=== PATIENT | female | born 1960 | race Caucasian/White ===

== ENCOUNTER 2019-01-30 07:08 | Observation (INO) | payer MEDICARE ==
[2019-01-27 10:28] VITALS: BMI 21.4
[2019-01-30 08:18] LABS: #Basophils 0.1 thou/uL (0.0-0.2); #Eosinphils 0.3 thou/uL (0.0-0.7); #Monocytes 0.5 thou/uL (0.11-0.59); %Basophils 1.1 % (0.0-1.0); %Eosinophils 4.6 % (0.0-10.0); %Lymphocytes 43.6 % (21.0-51.0); %Monocytes 6.9 % (0.0-10.0); %Neutrophils 43.8 % (42.0-75.0); Hemoglobin 14.5 g/dL (12.0-16.0); Mean Corpuscular HGB CONC 31.6 g/dL (32.0-36.0); Mean Corpuscular Volume 94.7 fL (78.0-98.0); Mean Platelet Volume 8.1 fL (7.4-10.4); Platelet Count 272 thou/uL (130-400); RBC Distribution Width 11.1 % (11.5-14.5); Red Blood Cell (RBC) Count 4.85 mill/uL (4.20-5.40); White Blood Cell (WBC) Count 6.8 thou/uL (4.8-10.8)
[2019-01-30] MEDS ORDERED: Sodium Chloride 0.9% 10 ML ONE (08:34)
[2019-01-30 08:36] LABS: Anion Gap 14 mmol/L (10-20); BUN (Urea Nitrogen) 12 mg/dL (9.8-20.1); Calc. Creatinine Clearance 65 mL/min (70-130); Calcium 9.9 mg/dL (7.8-10.44); Carbon Dioxide 28 mmol/L (22-29); Chloride 100 mmol/L (98-107); Estimated GFR-MDRD 71; Glucose 82 mg/dL (70-105); Potassium 3.9 mmol/L (3.5-5.1); Sodium 138 mmol/L (136-145)
[2019-01-30] MEDS ORDERED: Fentanyl 100 MCG/2 ML VIAL ONE ×2 (08:38→11:45)
[2019-01-30] MEDS ORDERED: HYDROmorphone 2 MG/ML VIAL ONE ×2 (08:38→10:16)
[2019-01-30] MEDS ORDERED: Midazolam HCl 2 mg/2 ml Vial ONE (08:56)
[2019-01-30] MEDS ORDERED: tiZANidine HCl 4 MG TAB ONE (11:06)
[2019-01-30] MEDS ORDERED: Non-Formulary Medication 1 EACH PO PRN (11:08)
[2019-01-30] MEDS ORDERED: Morphine 4 MG/ML VIAL SLOW IVP PRN (11:08)
[2019-01-30] MEDS ORDERED: Ondansetron HCl/PF 4 MG/2 ML Vial IVP PRN (11:08)
[2019-01-30] MEDS ORDERED: HYDROmorphone 2 MG/ML VIAL SLOW IVP PRN (11:08)
[2019-01-30] MEDS ORDERED: Promethazine HCl 25 MG/ML VIAL IM/IV PRN (11:08)
[2019-01-30] MEDS ORDERED: Morphine Sulfate 2 MG/ML SYRINGE SLOW IVP PRN (11:08)
[2019-01-30] MEDS ORDERED: Promethazine HCl 25 MG/ML VIAL IM PRN ×2 (11:10→18:27)
[2019-01-30] MEDS ORDERED: tiZANidine HCl 4 MG TAB PO PRN (11:10)
[2019-01-30] MEDS ORDERED: diphenhydrAMINE 25 MG CAP PO PRN ×2 (11:10→18:27)
[2019-01-30] MEDS ORDERED: Promethazine HCl 12.5 MG SUPP PR PRN (11:10)
[2019-01-30] MEDS ORDERED: traMADol HCl 50 MG TAB PO PRN ×2 (11:10)
[2019-01-30] MEDS ORDERED: Milk Of Magnesia 30 ML UDCUP PO PRN (11:10)
[2019-01-30] MEDS ORDERED: diphenhydrAMINE 50 MG/ML VIAL IVP PRN (11:10)
[2019-01-30] MEDS ORDERED: Mag-Al 1200 mg/1200 mg/30 ML UDCUP PO PRN (11:10)
[2019-01-30] MEDS ORDERED: HYDROcodone/Acetaminophen 10/325 mg Tablet PO PRN ×2 (11:10)
[2019-01-30] MEDS ORDERED: Promethazine 25 MG TAB PO PRN (11:10)
[2019-01-30] MEDS ORDERED: ALPRAZolam 0.5 MG TAB PO PRN (11:22)
[2019-01-30] MEDS ORDERED: Fioricet 325/50/40 mg Tablet PO PRN (11:23)
[2019-01-30] MEDS ORDERED: Morphine 2 MG/ML SYRINGE SLOW IVP PRN (11:45)
--- NOTE | 2019-01-30 14:04 | OP ---
DATE OF PROCEDURE: 01/30/2019 BRAND LEADER: Donald Jefferson PA-C PROCEDURE PERFORMED: Anterior cervical diskectomy C3-C4 and C5-C6. interbody arthrodesis, intervertebral biomechanical device, local morselized autograft, demineralized bone matrix, anterior titanium instrumentation C3-C4 and C5-C6. DESCRIPTION OF PROCEDURE: The patient was brought to the operating room and intubated. She was positioned supine in modest extension on a gel-filled donut. We performed a single incision in the right precervical area and dissected medial to the sternocleidomastoid muscle, identified the anterior cervical spine and confirmed our level by x-ray as expected. C4-C5 was auto fused and we identified C3-C4 and C5-C6. At both of these levels, we placed distraction and completely removed the intervertebral disk, decompressing the neural elements. The bony endplates were then decorticated for the purpose of arthrodesis and appropriate-sized intervertebral biomechanical PEEK device was brought into the field and filled with demineralized bone matrix local morselized autograft, and tapped in place securely at C3-C4 and C5-C6. Next, two separate one level anterior plate was brought into the field and secured to C3 and C4 and to C5 and C6 using two 14-mm screws at each level. The wound was then extensively irrigated and maximum hemostasis was secured and the wound was closed in anatomic layers over drain. Job ID: [id number]
[2019-01-30] MEDS ORDERED: Rocuronium Bromide 10 MG/ML (10ML VIAL) ONE (14:55)
[2019-01-30] MEDS ORDERED: Ondansetron PF 4 MG/2 ML Vial ONE (14:55)
[2019-01-30] MEDS ORDERED: PROPOFOL 200 MG/20 ML VIAL ONE (14:55)
[2019-01-30] MEDS ORDERED: Glycopyrrolate 0.2 MG/ML 5 ML SYRINGE ONE (14:55)
[2019-01-30] MEDS ORDERED: Dexamethasone 20 MG/5 ML VIAL ONE (14:55)
[2019-01-30] MEDS ORDERED: Lidocaine 1% PF 5 ML VIAL ONE (14:55)
[2019-01-30] MEDS ORDERED: oxyCODONE/Acetaminophen 5 mg/325 mg Tablet PO SCH (15:00)
[2019-01-30] MEDS: Morphine 4 MG/ML VIAL SLOW IVP PRN ×2 (15:17→17:09)
[2019-01-30] MEDS: CEFAZOLIN 2 GM in Premix Bag 1 BAG IVPB SCH ×2 (15:19→23:21)
[2019-01-30] MEDS: FLUoxetine HCl 20 MG CAP PO SCH ×2 (15:30→20:30)
[2019-01-30] MEDS: Sodium Chloride 0.9% 1,000 ML IV SCH (15:33)
[2019-01-30] MEDS ORDERED: diphenhydrAMINE 50 MG/ML VIAL IM/IV PRN (18:27)
[2019-01-30] MEDS ORDERED: Naloxone HCl 0.4 mg/ml Vial IV PRN (18:27)
[2019-01-30] MEDS ORDERED: Zolpidem Tartrate 5 MG TAB PO PRN (18:27)
[2019-01-30] MEDS ORDERED: Ondansetron PF 4 MG/2 ML Vial IVP PRN (18:27)
[2019-01-30] MEDS: fentaNYL Citrate/PF 2,000 MCG in Sodium Chloride 0.9% 60 ML IV PRN (19:17)
[2019-01-30] MEDS: Methocarbamol 500 MG TAB PO SCH (20:29)
[2019-01-30] MEDS: Ketorolac Tromethamine 30 MG/ML VIAL IVP PRN (20:32)
[2019-01-31] MEDS: Sodium Chloride 0.9% 1,000 ML IV SCH ×3 (00:31→12:34)
[2019-01-31] MEDS: Ketorolac Tromethamine 30 MG/ML VIAL IVP PRN ×2 (03:00→16:29)
[2019-01-31] MEDS ORDERED: Dexamethasone 10 MG/ML VIAL SLOW IVP SCH (07:45)
[2019-01-31] MEDS ORDERED: CEFAZOLIN 2 GM in Premix Bag 1 BAG IVPB SCH (08:00)
[2019-01-31] MEDS: Famotidine/PF 20 mg/2ml Vial SLOW IVP SCH ×2 (08:31→21:15)
[2019-01-31] MEDS: Gabapentin 100 MG CAP PO SCH (08:33)
[2019-01-31] MEDS: FLUoxetine HCl 20 MG CAP PO SCH ×3 (08:33→21:15)
--- NOTE | 2019-01-31 08:54 | PRG ---
DATE OF SERVICE: 01/31/2019 The patient is a 58-year-old female, status post C3 to C4 and C5 to C6 ACDF. Following surgery, she was transitioned to the Med/Surg floor. The patient has history of chronic pain and has had issues with pain control since the surgery. Anesthesia was consulted for HYDRAULIC RU[employer]CH[employer]IC management and since placement of this, the patient reports she is significantly improved. She still complain of pain to the posterior neck, which is causing her headaches. She is also complaining of some dysphagia. She is tolerating some p.o. LIA drain had 35 mL out overnight. The patient is awake and alert. She is anxious and somewhat tearful during our exam. She has free active range of motion of all extremities. No focal motor weakness or reflex asymmetry. Her incision is dry, soft, and intact. There is a small amount of serosanguinous drainage in the LIA bulb. I have ordered 10 mg of IV Decadron for dysphagia. I have also started the patient on 20 mg of IV famotidine b.i.d. for GI protection. We will continue to work on pain control mobilization and advancing her diet. We will discuss this plan with Dr. Geller. Job ID: [id number] [facility]
[2019-01-31] MEDS ORDERED: LISDEXAMFETAMINE DIMESYLATE 60 MG PO SCH (09:00)
[2019-01-31] MEDS: Methocarbamol 500 MG TAB PO SCH ×2 (11:48→21:15)
[2019-02-01] MEDS: fentaNYL Citrate/PF 2,000 MCG in Sodium Chloride 0.9% 60 ML IV PRN (00:30)
[2019-02-01] MEDS: Sodium Chloride 0.9% 1,000 ML IV SCH (04:29)
[2019-02-01 09:00] VITALS: TEMP 97.8
[2019-02-01] MEDS: FLUoxetine HCl 20 MG CAP PO SCH (09:04)
[2019-02-01] MEDS: Gabapentin 100 MG CAP PO SCH (09:04)
[2019-02-01] MEDS: Famotidine/PF 20 mg/2ml Vial SLOW IVP SCH (09:05)
[2019-02-01] MEDS ORDERED: HYDROcodone/Acetaminophen 10/325 mg Tablet PO PRN ×2 (10:15)
[2019-02-01] MEDS: Methocarbamol 500 MG TAB PO SCH (10:34)
--- NOTE | 2019-02-01 11:38 | DIS ---
DATE OF ADMISSION: 01/30/2019 DATE OF DISCHARGE: 02/01/2019 The patient is a 58-year-old female, status post C3 to C4 and C5 to C6 ACDF, postoperative day #2. Following her surgery, she was transitioned to the Med/Surg floor, where her pain was well controlled with the TANK CAR REPAIRER. She has been tolerating a regular diet and she has been ambulatory in the department. She is still complaining of some soreness to the posterior aspect of the cervical spine and some mild dysphagia, but she reports that this has improved with the addition of the TANK CAR REPAIRER. She is awake, alert, comfortable. She has free active range of motion of all extremities. No focal motor weakness. No reflex asymmetry. Sensation is intact to light touch. Incision is dry, soft, intact. She is more comfortable today and much less anxious. She is no longer tearful today. The patient is much improved and we will plan to discharge her to home when TANK CAR REPAIRER is discontinued. I have discussed home care precautions. The patient has been provided a prescription for hydrocodone and she has a script at home for muscle relaxer. We will follow up with her in 2 weeks. Job ID: [id number]
[2019-02-01 12:50] VITALS: BP 96/62
== END 2019-02-01 14:20 | disposition home or self-care (01) ==
LOC: SDC 07:08 → SJJU 11:07
PROVIDERS: ADMIT Neurological Surgery; ATTEND Neurological Surgery
PROC: 0RG20A0 Fusion of 2 or more Cervical Vertebral Joints with Interbody Fusion Device, Anterior Approach, Anterior Column, Open Approach (ICD-10-PCS; principal; 2019-01-30)
PROC: 0RG20J1 Fusion of 2 or more Cervical Vertebral Joints with Synthetic Substitute, Posterior Approach, Posterior Column, Open Approach (ICD-10-PCS; 2019-01-30)
PROC: 0RB30ZZ Excision of Cervical Vertebral Disc, Open Approach (ICD-10-PCS; 2019-01-30)
DX: M47.812 Spondylosis without myelopathy or radiculopathy, cervical region (principal); R13.10 Dysphagia, unspecified; Z79.899 Other long term (current) drug therapy; Z91.018 Allergy to other foods
CPT/HCPCS: 76000; 80048; 85025; 93005; 93010; 96361; 96365; 96366; 96375; 96376; C1713; C1768; C1776; G0378; J0131; J1100; J1170; J1885; J2001; J2250; J2270; J2405; J2704; J3010; J3490; J7050; S0028

== ENCOUNTER 2019-02-14 09:54 | Outpatient (CLI) | payer MEDICARE ==
--- NOTE | 2019-02-14 10:40 | RAD ---
THREE VIEWS CERVICAL SPINE: INDICATION: Postop cervical spine. COMPARISON: Prior MR of the cervical spine dated 02/11/2017. FINDINGS: There is an ACDF at C4-5 and C6-7 intervertebral level. There is slight anterior translation of C7 o n T1. There is ankylosis of C2 to C3 and C3 to C4. There is ankylosis of C5 to C6. Lateral masses are symmetric. The lung apices are clear. IMPRESSION: 1. Anterior cervical diskectomy and fusion of the cervical spine. 2. Diffuse osteopenia and multilevel spondylosis. POS: NATAN
== END 2019-02-14 09:55 | disposition home or self-care (01) ==
LOC: TBSIIMAG 09:54
PROVIDERS: ATTEND Neurological Surgery
DX: M47.12 Other spondylosis with myelopathy, cervical region (principal); M47.22 Other spondylosis with radiculopathy, cervical region; M85.80 Other specified disorders of bone density and structure, unspecified site; Z98.890 Other specified postprocedural states; Z98.1 Arthrodesis status
CPT/HCPCS: 72040

== ENCOUNTER 2019-03-28 15:42 | Outpatient (CLI) | payer MEDICARE ==
--- NOTE | 2019-03-28 16:22 | RAD ---
3 views cervical spine. Raff history: Follow-up surgery. AP, lateral and open-mouth odontoid view cervical unobtained. Comparison made to previous exam from 02/14/2019. 3 views cervical spine demonstrate ACDF with fusion of the C2, C3, C4, C5, C6 and C7 vertebral levels . ACDF plates and screws are in good position. No significant interval change is seen. C7-T1 level demonstrates disc space height loss with mild anterolisthesis of C7 on T1. IMPRESSION: Upper and mid cervical spinal fusion.
== END 2019-03-28 15:43 | disposition home or self-care (01) ==
LOC: TBSIIMAG 15:42
PROVIDERS: ATTEND Neurological Surgery
DX: M50.30 Other cervical disc degeneration, unspecified cervical region (principal); M43.22 Fusion of spine, cervical region
CPT/HCPCS: 72040